=== PATIENT | female | born 1960 | race African-American/Black ===

== ENCOUNTER 2022-05-08 00:05 | Emergency (ER) | payer OTHER ==
[~2022-05-08] VITALS: Ht 167.6 cm; Wt 108.9 kg
[2022-05-08 00:09] VITALS: BP 191/171
[2022-05-08] MEDS ORDERED: HALOPERIDOL IM 5 MG/ML VIAL ONE (00:09)
[2022-05-08] MEDS ORDERED: HALOPERIDOL IM 5 MG/ML VIAL IM ONE (00:10)
--- NOTE | 2022-05-08 00:10 | NUR ---
PT BIBA BLS TO BED 08
[2022-05-08] MEDS ORDERED: LORazepam 2 MG/ML VIAL ONE (00:16)
[2022-05-08] MEDS ORDERED: LORazepam 2 MG/ML VIAL IVP ONE (00:20)
--- NOTE | 2022-05-08 00:29 | NUR ---
BLOOD COLLECTED AND WALKED TO LAB
[2022-05-08 00:33] LABS: BASOPHILS # (AUTO) 0.1 K/uL (0.00-0.22); BASOPHILS % (AUTO) 1.3 % (0.0-2.0); EOSINOPHILS % (AUTO) 0.2 % (0.0-4.0); HEMATOCRIT 41.4 % (36-48); HEMOGLOBIN 13.8 g/dL (12.0-16.0); LYMPHOCYTES # (AUTO) 5.2 K/uL (2.5-16.5); LYMPHOCYTES % (AUTO) 45.4 % (20.5-51.1); MEAN CORPUSCULAR HEMOGLOBIN 28 pg (27-31); MEAN CORPUSCULAR HGB CONC 33 g/dL (33-37); MEAN CORPUSCULAR VOLUME 84.2 fL (80-94); MONOCYTES % (AUTO) 8.9 % (1.7-9.3); NEUTROPHILS # (AUTO) 5.1 K/uL (1.8-7.7); NEUTROPHILS % (AUTO) 44.2 % (42.2-75.2); PLATELET COUNT (AUTO) 279 K/uL (140-450); RED BLOOD CELL COUNT(AUTO) 4.92 MIL/uL (4.20-5.40); RED CELL DISTRIBUTION WIDTH 14.2 % (11.6-13.7); WHITE BLOOD COUNT (AUTO) 11.5 K/uL (4.8-10.8)
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
--- NOTE | 2022-05-08 00:50 | NUR ---
BLAYNE COLLECTED AND WALKED TO LAB
--- NOTE | 2022-05-08 00:50 | NUR ---
URINE COLLECTED VIA STERILE STRAIGHT CATH AND TAKEN TO LAB.
[2022-05-08 00:52] LABS: ALBUMIN 3.7 g/dL (3.4-5.0); ANION GAP 17.6 (8-16); ASPARTATE AMINOTRANSFERASE 56 U/L (15-37); CARBON DIOXIDE 22.5 mmol/L (21-32); CHLORIDE 100 mmol/L (98-107); CREATININE 1.6 mg/dL (0.6-1.3); GFR ARICAN-AMERICAN 42 mL/min (>90); GLUCOSE 212 mg/dL (74-106); POTASSIUM 3.1 mmol/L (3.5-5.1); SODIUM SERUM 137 mmol/L (136-145); TOTAL BILIRUBIN 0.5 mg/dL (0.0-1.0); UREA NITROGEN, BLOOD 16 mg/dL (7-18)
[2022-05-08 00:53] LABS: ACETAMINOPHEN 0.5 ug/ml (10-30)
[2022-05-08 01:09] LABS: BARBITURATE, URINE NEGATIVE ng/ml (NEG <=200); BENZODIAZEPINE, URINE NEGATIVE ng/mL (NEG <=200); CANNABINOID, URINE POSITIVE ng/mL (NEG <=50); COCAINE, URINE POSITIVE ng/mL (NEG <=300); OPIATE, URINE NEGATIVE ng/mL (NEG <=2000); PHENCYCLIDINE SCREEN,URINE NEGATIVE ng/mL (NEG <=25)
--- NOTE | 2022-05-08 02:14 | NUR ---
PT IS ASLEEP RESP EVEN AND UNLABORED. 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 2L NC SPO2 95%. PT HAS BEEN COUGHING DURING SLEEP MOIST UNPRODUCTIVE COUGH. HOB ELEVATED SIDE RAILS UP X2
[2022-05-08] MEDS ORDERED: NACL 0.9% 1,000 ML IV ONE (02:15)
[2022-05-08] MEDS ORDERED: POTASSIUM CHLORIDE 10 MEQ TABER PO ONE ×2 (02:15→03:32)
--- NOTE | 2022-05-08 04:20 | NUR ---
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 RESP EVEN AND UNLABORED. HOB ELEVATED SIDE RAILS UP X2 BED AT LOWEST POSITION
--- NOTE | 2022-05-08 06:56 | NUR ---
PT IS MORE AROUSABLE. IS RESTING IN BED RESP EVEN AND UNLABORED. 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 PT WILL BE DC LATER THIS AM.
[2022-05-08 08:29] VITALS: BP 143/57
--- NOTE | 2022-05-08 08:32 | NUR ---
Patient discharged with v/s stable. Written and verbal after care instructions given and explained. Patient verbalized understanding. Ambulatory with steady gait. All questions addressed prior to discharge. Advised to follow up with PMD.
--- NOTE | 2022-05-08 08:33 | NUR ---
Chart checked and completed. The patient's care was reviewed and supervised by Ester Marc RN.
== END 2022-05-08 08:32 | disposition home or self-care (01) ==
LOC: MED 00:05
DX: F19.90 Other psychoactive substance use, unspecified, uncomplicated (principal); F10.129 Alcohol abuse with intoxication, unspecified; Z20.822 Contact with and (suspected) exposure to COVID-19; R41.82 Altered mental status, unspecified; E87.6 Hypokalemia; Y90.9 Presence of alcohol in blood, level not specified
CPT/HCPCS: 36415; 80053; 80305; 85025; 87426; 93005; 96361; 96372; 96374; 99291; G0480; G0482; J1630; J2060; J7030; 99285